=== PATIENT | male | born 1970 | race Caucasian/White ===

== ENCOUNTER 2022-03-25 06:44 | Day surgery (SDC) | payer BC ==
[2022-03-25] MEDS ORDERED: Propofol 200 MG/20 ML SDV IV ONE (06:45)
[2022-03-25] MEDS ORDERED: Sodium Chloride 0.9% 10 ML Syringe FLUSH PRN (06:45)
[2022-03-25] MEDS: Lactated Ringers 1,000 ML IV SCH (07:25)
== END 2022-03-25 09:25 | disposition home or self-care (01) ==
LOC: FB.SDS 06:44
PROVIDERS: ATTEND Surgery
DX: Z12.11 Encounter for screening for malignant neoplasm of colon (principal); I48.91 Unspecified atrial fibrillation; I10 Essential (primary) hypertension; Z80.0 Family history of malignant neoplasm of digestive organs; Z91.048 Other nonmedicinal substance allergy status; Z79.899 Other long term (current) drug therapy
CPT/HCPCS: 00812-QZ; J2704; J7120